=== PATIENT | female | born 1960 | race Caucasian/White ===

== ENCOUNTER 2024-07-19 15:30 | Emergency (ER) | payer MEDICARE, OTHER, SELFPAY ==
[2024-07-19 15:34] VITALS: BP 121/74
--- NOTE | 2024-07-19 15:37 | ED.MUSCINJ ---
HPI-Injury
<Alex Izquierdo PA-C - Last Filed: 07/19/24 15:38>
General
Chief Complaint: Musculo-Skeletal Complaint
Time Seen by Provider: 07/19/24 18:29
<Kiki Gilmore MD - Last Filed: 07/19/24 23:05>
General
Source: patient
Exam Limitations: none
Nursing documentation reviewed up to this point in time: agreed with
History of Present Illness-Injury
Is this injury a work related problem?: No
Is pt an associate of [facility]?: No
Initial Injury comments:
The patient is a 64-year-old woman who was walking her dog and accidentally fell. Patient reports that her right hand had been tucked in her pocket and when she fell, her right wrist got twisted. She reports that her fall was broken by her left
side. Patient complains of only pain in her right wrist. She did not hit her head. She denies neck pain and back pain. She reports she has been able to walk without difficulty. Patient is on no blood thinners. Patient has a deformity of her
right wrist. She reports that she broke her shoulder several years ago and was followed by [facility] orthopedics
ED Provider Triage
<Alex Izquierdo PA-C - Last Filed: 07/19/24 15:38>
-
Patient seen by provider in Triage?: Seen in Triage
64-year-old female [id number] walking dog fell and landed on her right hand. She notes pain and deformity to right wrist. No head strike
There is obvious deformity to the right wrist on exam. Vital signs are stable. Will send for x-ray of the right wrist
Patient seen by healthcare provider in triage warrants further evaluation
Past History
<Alex Izquierdo PA-C - Last Filed: 07/19/24 15:38>
Past History
ED Past Medical History: None
ED Past Surgical History: None
Social History
Tobacco: Non-smoker
Alcohol: None
<Kiki Gilmore MD - Last Filed: 07/19/24 23:05>
Past History
ED Past Medical History: NIDDM
ED Past Surgical History: Other
Social History
Drug: None
Personal:
Living: with family
Employment: Other
Family History
Family History: Other
Review of Systems
<Kiki Gilmore MD - Last Filed: 07/19/24 23:05>
Review of Systems
Allergies reviewed?: Yes
All Other Systems: ROS reviewed and negative except as documented in HPI and ROS
Constitutional: Reports no symptoms
EENT: Reports no symptoms
Respiratory: Reports no symptoms
Cardiac: Reports no symptoms
ABD/GI: Reports no symptoms
: Reports no symptoms
Musculoskeletal: Reports joint pain and joint swelling
Neurological: Reports no symptoms
Endocrine: Reports no symptoms
Hematologic/Lymphatic: Reports no symptoms
Psychiatric: Reports no symptoms
Phy Exam
<Kiki Gilmore MD - Last Filed: 07/19/24 23:05>
Physical Exam
Physical Exam:
Physical Exam
General: no apparent distress, not acutely ill, atraumatic appearing face and head
Neck: supple. no meningeal signs. Nontender
Heart: s1/s2 regular rate and rhythm, no murmur. equal radial pulses. No chest wall tenderness
Lungs: no acute respiratory distress. clear bilaterally. No vertebral spine tenderness
Abdomen: Soft, nontender
Neuro: alert and oriented. no focal neurological deficits
Skin: no rash
Psychiatric: well kept. interactive and cooperative
Extremities: Swollen deformed right wrist area, otherwise no areas of tenderness or deformity of extremities. Nontender pelvis and hips. Strong pulses and excellent sensation in right upper extremity
Injury Course
<Alex Izquierdo PA-C - Last Filed: 07/19/24 15:38>
Orders/Labs/Results
Orders:
Orders
07/19/24 15:31
Wrist, Right 3 Views [CR Wrist - Right Min 3 Views] Urgent
Comment:
Reason For Exam: fall
07/19/24 18:52
Oxycodone/Acetaminophen [Percocet 5/325] 1 tablet PO NOW STA
07/19/24 19:44
Splints/Slings/Crut- Treatment ONCE
Location: Right
Type of Splint: Dorsal / Volar
Comment: extend wrist
07/19/24 20:00
Oxycodone/Acetaminophen [Percocet 5/325] 1 tablet PO NOW STA
<Kiki Gilmore MD - Last Filed: 07/19/24 23:05>
Orders/Labs/Results
Orders:
Orders
07/19/24 15:31
Wrist, Right 3 Views [CR Wrist - Right Min 3 Views] Urgent
Comment:
Reason For Exam: fall
07/19/24 18:52
Oxycodone/Acetaminophen [Percocet 5/325] 1 tablet PO NOW STA
07/19/24 19:44
Splints/Slings/Crut- Treatment ONCE
Location: Right
Type of Splint: Dorsal / Volar
Comment: extend wrist
07/19/24 20:00
Oxycodone/Acetaminophen [Percocet 5/325] 1 tablet PO NOW STA
<Kiki Gilmore MD - Last Filed: 07/19/24 23:05>
MDM/Problems Addressed
Differential Diagnosis Includes:
Right wrist fracture, right wrist dislocation, right forearm fracture
MDM/Problems Addressed:
Patient has acute right wrist pain and swelling after a fall
<Kiki Gilmore MD - Last Filed: 07/19/24 23:05>
*Radiology
Radiology exam reviewed: preliminary read by ED provider (Right wrist x-ray reviewed by me. Fracture seen in ulnar styloid as well as radius)
*Pulse Oximetry
Patient hypoxic: no
*EKG
Interpreted by ED Provider?: NA
*Vocal Teacher Interpretation
Rate: Vocal Teacher- N/A
*Critical Care Note
Total Time (30-74mins, 75-104mins- exclusive of procedures): Not Applicable
Data Reviewed
Source: patient and family
<Kiki Gilmore MD - Last Filed: 07/19/24 23:05>
Patient Management
Social determinants of health affecting care: Living situation and Strong social support
Discussion with other providers: Other (Case discussed with Dr. Del Castillo who reviewed x-rays and suggested that patient get put in volar dorsal splint with wrist slightly extended)
Escalation/DeEscalation of care consider admission/obs:
Patient placed in right dorsal volar splint. Splint checked by me. Excellent cap refill in right fingers.
ED Attending Note
<Alex Izquierdo PA-C - Last Filed: 07/19/24 15:38>
-
Portions of this chart may have been created with voice recognition software.� Occasional wrong word or��sound alike� substitutions may have occurred due to the inherent limitations of voice recognition software.
Discharge Plan
Departure
Patient Disposition: Home (Routine Discharge)
Date of Disposition: 07/19/24
Time of Disposition: 19:59
Patient with high blood pressure during this ER visit?: No
Condition: Good
Covid-19: Not Applicable
Discharge Problem:
Closed fracture of right wrist
Instructions: Wrist Fracture
Prescriptions:
New
oxycodone 5 mg capsule
5 mg PO Q6H PRN (Reason: Pain) Qty: 7 0RF
Referrals:
Amor Hinson MD [Family Provider] -
Mohinder Del Castillo MD [Active] - (Call tomorrow to set up an appointment to see within 1 week)
Interventions
Interventions:
*Risk Screen - Suicide Last Done: 07/19/24 15:34
*General Assessment Last Done: 07/19/24 15:34
*Neglect/Abuse Screening Last Done: 07/19/24 15:34
ED- Fall Risk Assessment Last Done: 07/19/24 20:53
*ED COVID-19 Vaccine History Last Done: 07/19/24 17:29
*Nursing Disposition Last Done: 07/19/24 20:15
ED-Musculoskeletal Assessment Last Done: 07/19/24 17:29
Discharge Date and Time
Discharge Date/Time: 07/19/24 21:10
Print Language: MONGOLIAN
[2024-07-19] MEDS: PERCOCET 5/325 1 TABLET PO ×2 (19:09→20:08)
== END 2024-07-19 21:10 | disposition home or self-care (01) ==
LOC: EMR 15:30
PROVIDERS: EMERGENCY PHYSICIAN Emergency Medicine; FAMILY PHYSICIAN Family Medicine
DX: S52.591A Other fractures of lower end of right radius, initial encounter for closed fracture (principal); W19.XXXA Unspecified fall, initial encounter; Y93.K1 Activity, walking an animal; E11.9 Type 2 diabetes mellitus without complications
CPT/HCPCS: 99283; 73110

== ENCOUNTER 2025-02-26 16:18 | Emergency (ER) | payer MEDICARE, OTHER, SELFPAY ==
[2025-02-26 16:26] VITALS: BP 131/83
--- NOTE | 2025-02-26 17:54 | ED.GENMED ---
History of Present Illness
General
Chief Complaint: Fall
Source: patient
Exam Limitations: none
Time Seen by Provider: 02/26/25 17:06
Nursing documentation reviewed up to this point in time: agreed with
History of Present Illness
History of Present Illness:
Patient to ED after trip and fall last PM> Hit right side of head on ground. No LOC. SHe has a small lac to right forhead that she reports continues to ooze. Abrasion to right knee. Brought self to ED for eval.
Past History
Past History
ED Past Medical History: NIDDM
ED Past Surgical History: Other
Social History
Tobacco: Non-smoker
Alcohol: None
Drug: None
Personal:
Living: with family
Employment: Other
Family History
Family History: Other
Review of Systems
Review of Systems
Allergies reviewed?: Yes
All Other Systems: ROS reviewed and negative except as documented in HPI and ROS
Constitutional: Reports no symptoms
EENT: Reports no symptoms
Respiratory: Reports no symptoms
Cardiac: Reports no symptoms
ABD/GI: Reports no symptoms
: Reports no symptoms
Musculoskeletal: Reports no symptoms
Skin: Reports other (lacertation to right forehead, abrasion right knee)
Neurological: Reports no symptoms
Psychiatric: Reports no symptoms
Phy Exam
General Physical Exam
General Presentation: well appearing and no apparent distress
General age: appears stated age
General Skin: warm and dry
General Habitus: normal
General Mental: alert
Neurological Exam
Neurological Exam: alert, oriented x3, CN II-XII intact, no motor deficits, no sensory deficits, speech normal and normal gait
Musculoskeletal Exam
Musculoskeletal Exam: full ROM and neuro vasc intact
Skin Exam
Skin Exam: normal color, warm/dry and other (abrasion right knee, laceration right forehead)
Psychiatric Exam
Psychiatric Exam: normal mood/affect
Course
Vital Signs
Initial and Last Documented VS:
Initial Vital Signs
Temp Pulse Resp BP Pulse Ox
98.8 F 86 17 131/83 99
02/26/25 16:26 02/26/25 16:26 02/26/25 16:26 02/26/25 16:26 02/26/25 16:26
Last Documented Vital Signs
Temp Pulse Resp BP Pulse Ox
98.8 F 86 17 131/83 99
02/26/25 16:26 02/26/25 16:26 02/26/25 16:26 02/26/25 16:26 02/26/25 16:26
*Pulse Oximetry
SaO2: 99
Oxygen Mode of Delivery: Room air
Patient hypoxic: no
*Critical Care Note
Total Time (30-74mins, 75-104mins- exclusive of procedures): Not Applicable
Update Note
Update Note:
patient to ED after trip and fall last PM> Hit right side of head on ground. No LOC. Neurologically she is baseline, does not take any blood thinners. Discussed CT evaluation of head and she does not feel that this is necessary. I do not have any
concerns for bleeding or fracture. FUll nonpainful ROM to right knee, ambulating without difficulty. I do not feel xray will add anything further, she agrees. She was given instructions on s/s to return to ED and she is agreeable to plan.
ED Attending Note
-
Portions of this chart may have been created with voice recognition software.� Occasional wrong word or��sound alike� substitutions may have occurred due to the inherent limitations of voice recognition software.
Discharge Plan
Departure
Patient Disposition: Home (Routine Discharge)
Date of Disposition: 02/26/25
Time of Disposition: 17:29
Patient with high blood pressure during this ER visit?: No
Condition: Good
Covid-19: Not Applicable
Discharge Problem:
Head injury
Instructions: Laceration Repair With Glue (DC), Wound Care (DC), Head Injury in Adults (DC), Skin Abrasions (DC)
Prescriptions:
No Action
oxycodone 5 mg capsule
5 mg PO Q6H PRN (Reason: Pain) Qty: 7 0RF
Referrals:
Angie Michel PA-C [Family Provider, General] - Next open appointment
Interventions
Interventions:
*Risk Screen - Suicide Last Done: 02/26/25 16:27
*General Assessment Last Done: 02/26/25 16:27
*Neglect/Abuse Screening Last Done: 02/26/25 16:27
*ED- Fall Risk Assessment Last Done: 02/26/25 17:39
*ED COVID-19 Vaccine History Last Done: 02/26/25 16:27
*Nursing Disposition Last Done: 02/26/25 17:39
ED-Musculoskeletal Assessment Last Done: 02/26/25 17:38
ED- Neurological Assessment Last Done: 02/26/25 17:38
ED-Skin Assessment Last Done: 02/26/25 17:38
Discharge Date and Time
Discharge Date/Time: 02/26/25 17:40
Print Language: AMHARIC
Skin Exam
Laceration
Right Forehead:
Length in cm: 1.5
Orientation: diagonal
Type of Laceration: simple
Any active bleeding?: no active bleeding
Distal skin color and temperature: normal-warm & good color
Normal distal neurovascular exam: Yes
Range of motion: full
Avulsion
Right Anterior Knee:
Type of avulsion injury: superfical
Any active bleeding?: no active bleeding
Distal skin color and temperature: normal-warm & good color
Normal distal neurovascular exam: Yes
== END 2025-02-26 17:40 | disposition home or self-care (01) ==
LOC: EMR 16:18
PROVIDERS: EMERGENCY PHYSICIAN Emergency Medicine; FAMILY PHYSICIAN Physician Assistant
DX: S09.90XA Unspecified injury of head, initial encounter (principal); S01.81XA Laceration without foreign body of other part of head, initial encounter; S80.211A Abrasion, right knee, initial encounter; W01.0XXA Fall on same level from slipping, tripping and stumbling without subsequent striking against object, initial encounter; E11.9 Type 2 diabetes mellitus without complications
CPT/HCPCS: 99282